=== PATIENT | female | born 1935 | race Caucasian/White ===

== ENCOUNTER 2021-10-13 14:41 | Outpatient (REF) | payer MEDICARE, OTHER, SELFPAY ==
--- NOTE | ~2021-10-13 | CT_ITS ---
EXAMINATION: CT HEAD WITHOUT CONTRAST CLINICAL INFORMATION: AMS and confusion. COMPARISON: None TECHNIQUE: Contiguous axial imaging was performed from the skull base to vertex without intravenous administration of contrast. This CT examination was performed using dose optimization techniques as appropriate, variously including the following: *Automated exposure control *Adjustment of mA and/or kV according to patient size (this includes techniques or standardized protocols for targeted exams where dose is matched to indication/reason for exam; i.e. extremities or head) *Use of iterative reconstruction technique DLP: 772 mGy-cm. FINDINGS: There is no evidence of acute intracranial hemorrhage or territorial infarction. No abnormal mass effect or midline shift is seen. Nova to white matter differentiation is well preserved. No extra-axial fluid collections are identified. Lateral ventricles are enlarged and so are the cortical sulci. There is no abnormal attenuation within the brain parenchyma. There is a left temporal craniotomy with left MCA, 2 aneurysm clips. The mastoid air cells and visualized portions of the paranasal sinuses are well aerated. CT/CT head/brain wo con IMPRESSION: No acute intracranial process seen. Age-related cerebral volume loss. Left temporal craniotomy with 2 MCA aneurysm clips left parasellar region.
== END 2021-10-13 14:42 | disposition home or self-care (01) ==
LOC: HO.CT 14:41
PROVIDERS: PCP Internal Medicine; Visit Provider Internal Medicine
DX: R41.82 Altered mental status, unspecified (principal)
CPT/HCPCS: 70450

== ENCOUNTER 2024-07-11 21:17 | Emergency (ER) | payer MEDICARE, OTHER, SELFPAY ==
--- NOTE | 2024-07-11 | ECG_ITS ---
Test Reason : fall Blood Pressure : / mmHG Vent. Rate : 084 BPM Atrial Rate : 084 BPM P-R Int : 146 ms QRS Dur : 084 ms QT Int : 402 ms P-R-T Axes : -17 018 -04 degrees QTc Int : 475 ms Normal sinus rhythm with sinus arrhythmia Left ventricular hypertrophy with repolarization abnormality ( R in aVL , Romhilt-Machuca ) Abnormal ECG No previous ECGs available Referred By: Generic ED Physician Electronically Signed By:Reed Washington
--- NOTE | ~2024-07-11 | XR_ITS ---
EXAMINATION: XR CHEST CLINICAL INFORMATION: Cough and fall COMPARISON: None available. TECHNIQUE: Frontal view of the chest was obtained. FINDINGS: Heart size normal is no evidence of CHF. Some mild increased reticular nodular markings are noted at the lung apices, right greater than left. No focal consolidations or pleural effusions. The bony thorax appears unremarkable without evidence of a fracture. XR/XR chest 1V IMPRESSION: Mild increased reticular nodular markings at the lung apices, right greater than left. Electronically signed by: J Luis Solitario MD 07/11/2024 10:44 PM [facility]
--- NOTE | ~2024-07-11 | CT_ITS ---
EXAMINATION: CT CERVICAL SPINE WITHOUT CONTRAST; UNENHANCED CT OF THE HEAD. CLINICAL INFORMATION: Unwitnessed fall. Headache. COMPARISON: CT head 10/13/2021 TECHNIQUE: Routine unenhanced CT of the head with multiple coronal and sagittal reformatted images; routine unenhanced CT of the cervical spine with multiple coronal and sagittal reformatted images. This CT examination was performed using dose optimization techniques as appropriate, variously including the following: *Automated exposure control *Adjustment of mA and/or kV according to patient size (this includes techniques or standardized protocols for targeted exams where dose is matched to indication/reason for exam; i.e. extremities or head) *Use of iterative reconstruction technique DLP: 1023 mGy-cm FINDINGS: CT head: 2 aneurysm clips are again noted in the approximate locations of the lateral aspect of the sella turcica similar location to findings present to 2021. Scattering artifact emanates from these regions and partially excludes visualization of adjacent structures. Adjacent craniotomy is visualized. Encephalomalacia of the left anterior temporal lobe and left inferior frontal lobe is again noted. Elsewhere, mild diffuse metastases or prominence of ventricles and sulci is noted. No intracranial hemorrhage, tumors or acute infarcts identified. Bilateral ocular lens replacements. No extra cranial soft tissue inflammatory changes. No significant opacification of the visualized paranasal sinuses, mastoid air cells and middle ear cavities. CT cervical spine: No fractures or acute-appearing subluxations identified. Diffuse osteopenia. The visualized lung apices are grossly clear though are suboptimally visualized secondary to motion artifact. CT/CT head/brain wo IV con IMPRESSION: Unenhanced CT of the head: *No acute intracranial abnormalities. *Two (2) intracranial aneurysm clips in situ. 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 Status post left craniotomy. CT cervical spine: *No acute abnormalities. Electronically signed by: Rajiv Iverson MD 07/12/2024 01:23 AM [facility]
--- NOTE | ~2024-07-11 | CT_ITS ---
EXAMINATION: CT CERVICAL SPINE WITHOUT CONTRAST; UNENHANCED CT OF THE HEAD. CLINICAL INFORMATION: Unwitnessed fall. Headache. COMPARISON: CT head 10/13/2021 TECHNIQUE: Routine unenhanced CT of the head with multiple coronal and sagittal reformatted images; routine unenhanced CT of the cervical spine with multiple coronal and sagittal reformatted images. This CT examination was performed using dose optimization techniques as appropriate, variously including the following: *Automated exposure control *Adjustment of mA and/or kV according to patient size (this includes techniques or standardized protocols for targeted exams where dose is matched to indication/reason for exam; i.e. extremities or head) *Use of iterative reconstruction technique DLP: 1023 mGy-cm FINDINGS: CT head: 2 aneurysm clips are again noted in the approximate locations of the lateral aspect of the sella turcica similar location to findings present to 2021. Scattering artifact emanates from these regions and partially excludes visualization of adjacent structures. Adjacent craniotomy is visualized. Encephalomalacia of the left anterior temporal lobe and left inferior frontal lobe is again noted. Elsewhere, mild diffuse metastases or prominence of ventricles and sulci is noted. No intracranial hemorrhage, tumors or acute infarcts identified. Bilateral ocular lens replacements. No extra cranial soft tissue inflammatory changes. No significant opacification of the visualized paranasal sinuses, mastoid air cells and middle ear cavities. CT cervical spine: No fractures or acute-appearing subluxations identified. Diffuse osteopenia. The visualized lung apices are grossly clear though are suboptimally visualized secondary to motion artifact. CT/CT cervical spine wo IV con IMPRESSION: Unenhanced CT of the head: *No acute intracranial abnormalities. *Two (2) intracranial aneurysm clips in situ. 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 Status post left craniotomy. CT cervical spine: *No acute abnormalities. Electronically signed by: Rajiv Iverson MD 07/12/2024 01:23 AM [facility]
[2024-07-11 21:22] VITALS: BP 170/83; BP 178/82; PULSE 81; PULSE 93; RESP 17; TEMP 36.9; O2SAT 95; O2SAT 96; BMI 28.3
[2024-07-11 21:34] LABS: MANUAL DIFF FLAG NO
[2024-07-11 21:40] LABS: Basophils Percent Auto 0.3 % (0-2); Eosinophils Percent Auto 0.1 % (0-4); Hematocrit 42.3 % (37.0-47.0); Hemoglobin 14.6 g/dl (12.0-16.0); Imm Gran Abs Auto 0.09 X10*3/uL (0.00-0.03); Imm Gran Pct Auto 0.7 % (0.0-0.4); Lymphocytes Absolute Auto 0.8 X10*3/uL (1.2-4.9); Lymphocytes Percent Auto 5.8 % (20-40); Mean Corpuscular HGB Conc 34.5 g/dl (31.0-35.0); Mean Corpuscular Volume 101.4 fL (80.0-98.0); Mean Platelet Volume 10.5 fL (9.4-12.3); Monocytes Absolute Auto 1.3 X10*3/uL (0.1-1.2); Neutrophils Absolute Auto 11.1 x10*3/uL (2.0-8.3); Neutrophils Percent Auto 83.1 % (45-73); Platelet Count 336 X10*3/uL (160-400); Red Blood Count 4.17 X10*6/uL (4.20-5.50); Red Cell Distribution Width 12.7 % (11.0-16.0); White Blood Count 13.3 X10*3/uL (4.8-10.8)
--- NOTE | 2024-07-11 21:42 | PC.NURSE ---
pt biba from home, pt found by son on floor next to bed with stool present. pt a&ox1, dementia at baseline. respirations even and unlabored, pt noted with high BP. pt unknown downtime/loc/headstrike. last contact was yesterday at 12pm by daughter. ems placed spinal immobilization and 20g in right ac. 20g placed in l ac by this rn, labs obtained. pt noted to have wet cough. pt reports neck pain, unable to give VPS. normal sinus 70-72 on tele.
[2024-07-11 21:56] LABS: Troponin-I High Sensitivity 12.4 ng/L (<3.5-17.0)
[2024-07-11 21:57] LABS: Alanine Aminotransferase 66 U/L (0-31); Albumin Level 3.4 g/dL (3.5-5.0); Alkaline Phosphatase 240 U/L (39-117); Anion Gap 21 (12-20); Aspartate Amino Transferase 43 U/L (5-31); Bilirubin Total 1.7 mg/dL (0.0-1.0); Blood Urea Nitrogen 35 mg/dL (9-16); Calcium 9.5 mg/dL (8.4-10.2); Carbon Dioxide 23 mmol/L (22-29); Chloride 100 mmol/L (96-108); Creatinine Clr Calc Pharmacy 36.3; Estimated Glomerular Filt Rate 47; Glucose Random 144 mg/dL (60-115); Potassium 3.8 mmol/L (3.3-5.1); Sodium 140 mmol/L (135-145); Total Protein 7.9 g/dL (6.5-8.0)
--- NOTE | 2024-07-11 21:57 | ED.FALL ---
HPI - Fall General Chief Complaint: Fall Stated Complaint: fall,unk how long on floor. neck pain,no thinners Time Seen by Provider: 07/11/24 21:56 Source: patient Mode of arrival: EMS Limitations: no limitations History of Present Illness ED Provider: Dr. 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 Unknown when the patient fell but she was last seen yesterday by the family. According to nursing staff the patient was covered in feces and urine. The patient has no memory of the fall and lacks insight as to why she was here. The patient was complaining of neck pain but has no other complaints. The son states that when he found her she was lying on the floor with her head up against the bed with her neck twisted in a funny position Related Data Allergies Allergy/AdvReac Type Severity Reaction Status Date / Time No Known Allergies Allergy Verified 07/11/24 21:34 Review of Systems Review of Systems: Yes all other systems are reviewed and are negative [facility] Past Medical History [facility] Narrative: Social history: Patient states she lives at home alone but her son and son's family lives close by and checks in on her often. Social History Social History Smoked in Last 30 Days: No Use of substances other than those prescribed or required for medical reasons: No Advance Directives: No Advance Directives Information Provided: Yes Do you have a plan to hurt others: No Plan Physical Exam Vital Signs: Vital Signs: Last Vital Signs Temp 98.5 F 07/12/24 02:24 Pulse 74 07/12/24 02:24 Resp 18 07/12/24 02:24 BP 183/88 H 07/12/24 02:24 Pulse Ox 97 07/12/24 02:24 O2 Del Method Room Air 07/12/24 02:24 BMI result Body Mass Index 28.3 Vital signs revealed an elevated blood pressure of 170/83 Exam: General: Awake, alert in no distress, lacks insight as to why she was here and can not give me any details of her fall Head: Normocephalic, atraumatic EENT: PERRL, Lids normal, sclera normal, conjunctiva normal, nose normal , ears normal, throat without erythema or exudates Neck: Patient was tenderness palpation of her cervical spine, she has pain with minimal movement of her neck Lung: breath sounds symmetric, no wheezing, rales or rhonchi Chest: symmetric movement, nontender Heart: regular rate and rhythm, normal S1, S2 no murmurs or rubs Abdomen: soft, non-tender, nondistended, normal bowel sounds Back: no vertebral tenderness, no CVAT Extremities: no deformities, moves all extremities symmetrically Neuro: Awake, alert, oriented, normal speech, cranial nerves intact, moves all extremities symmetrically Psych: Pleasant, cooperative Medications Administered Discontinued Medications Generic Name Dose Route Start Last Admin Trade Name Freq PRN Reason Stop Dose Admin Sodium Chloride 1,000 mls @ 999 mls/hr 07/11/24 22:03 07/12/24 00:33 Ns IV 07/11/24 23:03 Infused .Q1H1M STA Infusion Medical Decision Making Medical Decision Making MDM Narrative: 88-year-old female history of dementia, hypertension, 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 Unknown when the patient fell but she was last seen yesterday by the family. According to nursing staff the patient was covered in feces and urine. The patient has no memory of the fall and lacks insight as to why she was here. The patient was complaining of neck pain but has no other complaints. Vital signs were unremarkable. Exam did reveal tenderness palpation of her neck with no other significant findings. Differential diagnosis: ?Includes but is not limited to skull fracture, intracranial bleed, neck fracture, neck sprain, rhabdomyolysis, electrolyte abnormalities, anemia, volume depletion, dehydration Course: 22:56 My interpretation patient's laboratory evaluation is as follows: WBC elevated 13,300. H&H was normal 14.6 and 42.3 with an elevated MCV of 101.4. BUN elevated 35 with a normal creatinine of 1.10-most likely secondary to dehydration volume depletion. Glucose elevated 144. Bilirubin elevated 1.7. AST, ALT and alk-phos elevated 43, 66 and 240. CK was normal at 70. Straight cath urinalysis was positive for protein, blood, nitrates and leukocyte esterase. Microscopic revealed 0-2 RBCs, 11-20 WBCs, 0-2 squamous cells, 4+ bacteria-consistent with a urinary tract infection. Patient was started on Ceftin 250 mg q.12 hours for 5 days for urinary tract infection. 02:28 Start physician observation The patient's CT scan of her head and cervical spine did not reveal any acute abnormalities. The nursing staff attempted to get the patient out of bed and she was a 2-3 person assist and could not stand and walk. I suspect that this is secondary to contusions/muscle injury from lying on the floor for prolonged period of time and being in an awkward position. According to the son the patient was normally able to walk without any difficulty, therefore the patient will be placed in physician observation and I will get a physical therapy and case management consult to determine if the patient can go to a alf facility for rehab. The patient was given Tylenol 975 mg orally for her pain Lab Data MDM Lab Attestation statement: I reviewed the patient's lab results. 07/11/24 21:31 07/11/24 21:31 Labs: Lab Results 07/11/24 07/11/24 Range/Units 21:31 22:14 WBC 13.3 H (4.8-10.8) X10*3/uL RBC 4.17 L (4.20-5.50) X10*6/uL Hgb 14.6 (12.0-16.0) g/dl Hct 42.3 (37.0-47.0) % MCV 101.4 H (80.0-98.0) fL MCH 35.0 H (27.0-33.0) pg MCHC 34.5 (31.0-35.0) g/dl RDW 12.7 (11.0-16.0) % Plt Count 336 (160-400) X10*3/uL MPV 10.5 (9.4-12.3) fL Immature Gran % (Auto) 0.7 H (0.0-0.4) % Neut % (Auto) 83.1 H (45-73) % Lymph % (Auto) 5.8 L (20-40) % Sharp % (Auto) 10.0 (2-11) % Eos % (Auto) 0.1 (0-4) % Baso % (Auto) 0.3 (0-2) % Lymph # (Auto) 0.8 L (1.2-4.9) X10*3/uL Sharp # (Auto) 1.3 H (0.1-1.2) X10*3/uL Eos # (Auto) 0.0 (0.0-0.4) X10*3/uL Baso # (Auto) 0.0 (0.0-0.2) X10*3/uL Abs Immat Gran (auto) 0.09 H (0.00-0.03) X10*3/uL Absolute Neuts (auto) 11.1 H (2.0-8.3) x10*3/uL Absolute Nucleated RBC 0.000 (0.0-0.012) X10*3/uL Nucleated RBC % (auto) 0.0 (0.0-0.2) /100WBC Sodium 140 (135-145) mmol/L Potassium 3.8 (3.3-5.1) mmol/L Chloride 100 (96-108) mmol/L Carbon Dioxide 23 (22-29) mmol/L Anion Gap 21 H (12-20) BUN 35 H (9-16) mg/dL Creatinine 1.10 (0.5-1.4) mg/dL Estim Creat Clear Calc 36.3 Estimated GFR 47 Random Glucose 144 H (60-115) mg/dL Calcium 9.5 (8.4-10.2) mg/dL Total Bilirubin 1.7 H (0.0-1.0) mg/dL AST 43 H (5-31) U/L ALT 66 H (0-31) U/L Alkaline Phosphatase 240 H (39-117) U/L Total Creatine Kinase 70 (26-140) U/L Troponin I High Sens 12.4 (<3.5-17.0) ng/L Total Protein 7.9 (6.5-8.0) g/dL Albumin 3.4 L (3.5-5.0) g/dL Urine Color Dark Yellow Urine Appearance Clear Urine pH 5.0 (5.0-9.0) Ur Specific [place] 1.015 (1.005-1.025) Urine Protein 30 (1+) H (Neg-Trace) mg/dL Urine Glucose (UA) Negative (Negative) mg/dL Urine Ketones 15 (Negative) mg/dL Urine Blood Trace H (Negative) Urine Nitrite Positive H (Negative) Ur Leukocyte Esterase Small (1+) H (Negative) Urine RBC 0-2 (0-2) /HPF Urine WBC 11-20 H (0-5) /HPF Ur Squamous Epith Cells 0-2 (0-2) /HPF Urine Bacteria 4+ (None Seen) Hyaline Casts 3-5 (0-2) /LPF Radiology Impression Discussion of test interpretation with radiology: I have reviewed the radiologist's reading. Radiologist Impression: CT head/brain wo IV con IMPRESSION: Unenhanced CT of the head: *No acute intracranial abnormalities. *Two (2) intracranial aneurysm clips in situ. 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 Status post left craniotomy. CT cervical spine: *No acute abnormalities. Electronically signed by: Rajiv Iverson MD 07/12/2024 01:23 AM [facility] [place] Dictated By: Rajiv Iverson MD Discharge Plan Discharge Clinical Impression: Multiple contusions, Unable to ambulate Fall Qualifiers: Encounter type: initial encounter Qualified Code(s): W19.XXXA - Unspecified fall, initial encounter Acute neck sprain Qualifiers: Encounter type: initial encounter Qualified Code(s): S13.9XXA - Sprain of joints and ligaments of unspecified parts of neck, initial encounter Urinary tract infection Qualifiers: Urinary tract infection type: acute cystitis Hematuria presence: without hematuria Qualified Code(s): N30.00 - Acute cystitis without hematuria Patient Disposition: Still a Patient Additional Instructions: Take Ceftin 250 mg pills, 1 pill every 12 hours for 5 days for urinary tract infection Print Language: Jamaican
[2024-07-11] MEDS: 0.9 % Sodium Chloride 1,000 ML 999 ML IV (22:14)
--- NOTE | 2024-07-11 22:18 | PC.NURSE ---
pt straight cath per provider order. pt noted to have 700Ml tea colored, foul smelling urine. pt tolerated well.
[2024-07-11 22:23] LABS: Appearance Urine Clear; Color Urine Dark Yellow; Glucose Urine UA Negative (Negative); Leukocyte Esterase Urine Small (1+) (Negative); Nitrite Urine Positive (Negative); Specific Gravity - Urine 1.015 (1.005-1.025); UMIC TRIGGER UACC YES; Urine Blood Trace (Negative); Urine Ketones 15 mg/dL (Negative); Urine Protein 30 (1+) mg/dL (Neg-Trace)
[2024-07-11 22:28] LABS: Bacteria Urine 4+ (None Seen); RBC Urine 0-2 /HPF (0-2); Squamous Epithelial Cell Urine 0-2 /HPF (0-2); UACC Culture Trigger YES
--- NOTE | 2024-07-12 02:00 | PC.NURSE ---
this RN attempted to ambulate pt, pt unable to sit up without assistance. on standing, pt 3 person assist. pt helped back into bed, provider aware.
[2024-07-12 02:24] VITALS: BP 183/88; PULSE 74; RESP 18; TEMP 36.9; O2SAT 97
[2024-07-12] MEDS: cefuroxime axetiL 250 MG TABLET PO ×3 (03:24→20:57)
[2024-07-12] MEDS: Acetaminophen 325 MG TABLET 975 MG PO (03:24)
--- NOTE | 2024-07-12 03:34 | PC.NURSE ---
pt medicated per oct, tolerated well one pill at a time with water and re direction.
--- NOTE | 2024-07-12 06:44 | PC.NURSE ---
Pt was placed on purewick, sleeping while in overflow unit.
[2024-07-12 07:38] VITALS: BP 183/88; PULSE 74; O2SAT 97
[2024-07-12 07:57] VITALS: BP 195/94; PULSE 64; RESP 16; TEMP 36.4; O2SAT 97
[2024-07-12 08:26] LABS: COVID-19 Test Negative (Negative); IDNOW Serial# 152EDE1D
--- NOTE | 2024-07-12 10:01 | MHC.CM.ED ---
Addendum entered by Hannah He 07/12/24 10:10: Spoke with Patti at [facility] in [place]. They have apartments available. Clinical info will be faxed to her at [phone]. Keya has been asked to call Patti at [phone]. Original Note: Received case management consult overnight. Patient came to the ER after being found on the ground by her son. Patient found to have UTI. Physical therapy eval completed. 21/03 care vs LTC recommended. Patient is confused at this time. Spoke with patient's son, Jayson, via telephone at [phone]. Patient lives alone, ambulates independently and had no services prior to coming to the ER. Physical therapy eval findings discussed. Jayson believes patient has a fpc care insurance policy. Jayson states his sister, Keya, will be bedside with patient shortly. Met with Keya and patient. Keya has a copy of patient's HCP and will provide CM with a copy. Keya verifies patient has a fpc care insurance policy and that family has looked into [facility] in [place]. T/W will reach out to [facility]. Continue to monitor for d/c needs.
--- NOTE | 2024-07-12 16:50 | PC.NURSE ---
Alert and oriented, purewick in place draining urine, ate well for dinner
--- NOTE | 2024-07-12 18:57 | PC.NURSE ---
Patient resting comfortably on a hospital bed, purewick in place and patent. Patient offers no complaints at tis time, patient's son at bedside, call donovan in patient's reach.
[2024-07-12 19:29] VITALS: BP 165/77
--- NOTE | 2024-07-12 19:42 | PC.NURSE ---
BP 165/77, P 80. Patient denies headache/ chest pain/SOB. Kailee Navas ED provider notified. Medication reconciliation completed. Yosef to order patient's home medications including BP meds.
--- NOTE | 2024-07-12 20:19 | PHA.MEDREC ---
Pharmacy Consult ? Medication Reconciliation Pharmacy has reviewed the medication reconciliation done by nursing.
[2024-07-12] MEDS: Donepezil HCl 10 MG TABLET PO (20:56)
[2024-07-12] MEDS: Phenytoin Sodium Extended 100 MG CAPSULE 200 MG PO (20:57)
[2024-07-12] MEDS: Memantine HCl 10 MG TABLET PO (20:57)
--- NOTE | 2024-07-12 21:04 | PC.NURSE ---
Patient medicated per MAR.
--- NOTE | 2024-07-13 03:34 | PC.NURSE ---
Patient is sleeping, not s/s of distress, RR even and unlabored.
[2024-07-13] MEDS: Levothyroxine Sodium 50 MCG TABLET PO (05:04)
[2024-07-13 05:37] VITALS: BP 162/82; PULSE 81; RESP 16; TEMP 37.1; O2SAT 95
[2024-07-13 07:44] VITALS: BP 168/102; PULSE 86; RESP 20; TEMP 36.8; O2SAT 96
--- NOTE | 2024-07-13 09:22 | MHC.CM.ED ---
Patient remains in ER overflow. Attempted to reach patient's daughter, Keya, in regards to discharge planning via telephone at [phone]. Left message requesting return telephone call. Continue to monitor for d/c needs.
[2024-07-13 09:47] VITALS: BP 171/98
[2024-07-13] MEDS: amLODIPine Besylate 10 MG TABLET PO (09:47)
--- NOTE | 2024-07-13 09:47 | MHC.CM.ED ---
Received return telephone call from daughter, Keya. Keya is completing application for [facility]. A nurse from [facility] will come to ER to assess patient. Family is planning on furnishing apartment this weekend. Anticipate patient can potentially d/c to [facility] in [place] on Tuesday. Continue to monitor for d/c needs.
[2024-07-13] MEDS: Losartan Potassium 50 MG TABLET 100 MG PO (09:48)
[2024-07-13] MEDS: Memantine HCl 10 MG TABLET PO ×2 (09:48→21:25)
[2024-07-13] MEDS: cefuroxime axetiL 250 MG TABLET PO ×2 (09:48→21:25)
[2024-07-13] MEDS: Pravastatin Sodium 40 MG TABLET PO (13:23)
[2024-07-13 14:00] VITALS: BP 140/63; PULSE 105; RESP 20; TEMP 37.3; O2SAT 95
[2024-07-13 16:07] VITALS: BP 139/64; PULSE 100; RESP 16; TEMP 37; O2SAT 97
[2024-07-13 19:36] VITALS: BP 115/56; PULSE 82; RESP 16; TEMP 36.3; O2SAT 95
[2024-07-13] MEDS: Donepezil HCl 10 MG TABLET PO (21:25)
[2024-07-13] MEDS: Phenytoin Sodium Extended 100 MG CAPSULE 200 MG PO (22:19)
--- NOTE | 2024-07-14 01:41 | PC.NURSE ---
Patient sleeping, right tilt position. Respirations even/unlabored. No acute distress. Visible chest rise. Allowed to sleep. Care ongoing.
[2024-07-14 05:52] VITALS: BP 149/67; PULSE 85; RESP 16; TEMP 37.1; O2SAT 97
[2024-07-14] MEDS: Levothyroxine Sodium 50 MCG TABLET PO (06:25)
[2024-07-14] MEDS: Acetaminophen 325 MG TABLET 650 MG PO ×2 (06:25→20:59)
--- NOTE | 2024-07-14 06:28 | MHC.EDTECH ---
Patient slept all night ,0600 rounding and vitals done ,Patient was clean up ,change and reposition ,Patient has a foam dressing on her coccyx for comfort ,no open area ,warm blanket given ,all safety measure in Place .
[2024-07-14 08:13] VITALS: BP 149/67
[2024-07-14] MEDS: Losartan Potassium 50 MG TABLET 100 MG PO (08:13)
[2024-07-14 08:14] VITALS: BP 149/67
[2024-07-14] MEDS: cefuroxime axetiL 250 MG TABLET PO ×2 (08:14→20:59)
[2024-07-14] MEDS: amLODIPine Besylate 10 MG TABLET PO (08:14)
[2024-07-14] MEDS: Memantine HCl 10 MG TABLET PO ×2 (08:14→20:59)
[2024-07-14] MEDS: Pravastatin Sodium 40 MG TABLET PO (09:30)
[2024-07-14 14:00] VITALS: BP 135/63; PULSE 90; RESP 16; TEMP 36.8; O2SAT 93
--- NOTE | 2024-07-14 19:11 | PC.NURSE ---
received report from Indu CHRISTOPHER, assume care of pt at this time
[2024-07-14] MEDS: Phenytoin Sodium Extended 100 MG CAPSULE 200 MG PO (20:59)
[2024-07-14] MEDS: Donepezil HCl 10 MG TABLET PO (20:59)
[2024-07-14 21:03] VITALS: BP 169/76; PULSE 108; RESP 16; TEMP 36.9; O2SAT 94
[2024-07-15 06:00] VITALS: BP 136/63; PULSE 80; RESP 16; TEMP 36.9; O2SAT 92
[2024-07-15] MEDS: Levothyroxine Sodium 50 MCG TABLET PO (06:24)
--- NOTE | 2024-07-15 06:56 | PC.NURSE ---
report given Tsering CHRISTOPHER
[2024-07-15 09:00] VITALS: BP 136/63
[2024-07-15] MEDS: Memantine HCl 10 MG TABLET PO ×2 (09:00→21:30)
[2024-07-15] MEDS: Losartan Potassium 50 MG TABLET 100 MG PO (09:00)
[2024-07-15 09:01] VITALS: BP 136/63
[2024-07-15] MEDS: Acetaminophen 325 MG TABLET 650 MG PO ×2 (09:01→19:15)
[2024-07-15] MEDS: amLODIPine Besylate 10 MG TABLET PO (09:01)
[2024-07-15] MEDS: cefuroxime axetiL 250 MG TABLET PO ×2 (09:01→21:30)
--- NOTE | 2024-07-15 09:25 | PC.NURSE ---
Resumed care of patient at 0700, she is currently resting, she is alert to herself. Pt is a 1:1 feed, pt as not very hungry at this time but did eat 25%, she was very thirsty and had 3 juices and water. PT is very anxious that her family has no idea where she is, emotional support provided to patient, bed alarm remains on and call donovan placed.
[2024-07-15] MEDS: Pravastatin Sodium 40 MG TABLET PO (11:47)
[2024-07-15 14:17] VITALS: BP 146/66; PULSE 96; RESP 16; TEMP 36.8; O2SAT 95
--- NOTE | 2024-07-15 15:42 | MHC.CM.ED ---
Patient remains in ER overflow. Met with patient, daughter Keya and son Jayson in regards to discharge planning. Furniture will be delivered Tuesday. Nurse from [facility] will be on-site [id number]. Keya concerned patient is not ambulating. Will ask physical therapy to re-see patient on Tuesday. Continue to monitor for d/c needs.
[2024-07-15] MEDS: Phenytoin Sodium Extended 100 MG CAPSULE 200 MG PO (21:30)
[2024-07-15] MEDS: Donepezil HCl 10 MG TABLET PO (21:30)
[2024-07-15 22:00] VITALS: BP 138/79; PULSE 70; RESP 18; TEMP 36.8; O2SAT 95
[2024-07-16] MEDS: Levothyroxine Sodium 50 MCG TABLET PO (05:44)
[2024-07-16 06:00] VITALS: BP 180/84; PULSE 70; RESP 18; TEMP 37; O2SAT 98
--- NOTE | 2024-07-16 06:35 | PC.NURSE ---
pt awake most of the night, resting comfortably but just looking out at the dept. during med passes pt unable to bring pill to mouth or follow simple commands at times, needs lots of cueing and/or physically assisting to bring her hand to her mouth with the pill for her. very pleasant, calm and cooperative but forgetful
--- NOTE | 2024-07-16 08:45 | MHC.EDTECH ---
pt ate 50% of breakfast
[2024-07-16 09:16] VITALS: BP 180/84
[2024-07-16] MEDS: cefuroxime axetiL 250 MG TABLET PO ×2 (09:16→20:52)
[2024-07-16] MEDS: Losartan Potassium 50 MG TABLET 100 MG PO (09:16)
[2024-07-16 09:17] VITALS: BP 180/84
[2024-07-16] MEDS: Memantine HCl 10 MG TABLET PO ×2 (09:17→20:52)
[2024-07-16] MEDS: amLODIPine Besylate 10 MG TABLET PO (09:17)
[2024-07-16] MEDS: Pravastatin Sodium 40 MG TABLET PO (09:57)
--- NOTE | 2024-07-16 10:15 | MHC.EDTECH ---
pt was washed up and had a complete bed change and was assisted to the recliner
--- NOTE | 2024-07-16 10:32 | PC.NURSE ---
pt awake/alert to person only, rr equal/non labored, lungs diminished throughout, pt denied pain/discomfort, ate breakfast, fall precautions in place-bed alarm on- pt was attempting to get oob wanting to walk to her room- pt was re-oriented, with this nurse at bedside patient was able to stand get oob and pivot to a reclining chair. pt currently watching tv. pure wick intact, call donovan within reach, will continue to monitor.
--- NOTE | 2024-07-16 11:32 | MHC.CM.ED ---
Patient remains in ER overflow. Nurse from [facility] should be on-site today to assess patient. Attempted to speak to Patti from [facility] via telephone at [phone] to confirm what time nurse would be coming. Left voicemail requesting return telephone call. Continue to monitor for d/c needs.
--- NOTE | 2024-07-16 12:36 | MHC.EDTECH ---
pt walked to the bathroom with a walker 1 assist and voided
--- NOTE | 2024-07-16 12:37 | PC.NURSE ---
patient ambulated with walker/stby assist from her bed to the bathroom and back to the bed, pt did well during this ambulation.
--- NOTE | 2024-07-16 12:46 | MHC.EDTECH ---
pt ate 50%lunch
[2024-07-16] MEDS: Acetaminophen 325 MG TABLET 650 MG PO (13:13)
--- NOTE | 2024-07-16 13:16 | PC.NURSE ---
pt medicated for 12/06 headache
[2024-07-16 13:51] VITALS: BP 135/67; PULSE 106; RESP 20; TEMP 36.2; O2SAT 94
--- NOTE | 2024-07-16 14:50 | MHC.CM.ED ---
Jim from [facility] on-site to assess patient. Jim will return to [facility] and meet with their team to determine if patient is safe for their independent unit or will need memory care. Continue to monitor for d/c needs.
--- NOTE | 2024-07-16 15:04 | MHC.EDTECH ---
pt wanted to go back to bed and was 1assist to the bed
--- NOTE | 2024-07-16 16:51 | MHC.EDTECH ---
pt had voided 250ml in the purewick and 1x inc in the brief
--- NOTE | 2024-07-16 18:17 | MHC.EDTECH ---
pt was clean up not inc has a brief and purewick on for bed
--- NOTE | 2024-07-16 18:24 | MHC.EDTECH ---
pt ate 50% of her dinner
[2024-07-16] MEDS: Donepezil HCl 10 MG TABLET PO (20:52)
[2024-07-16 21:10] VITALS: BP 182/79; PULSE 76; RESP 18; TEMP 36.9; O2SAT 96
--- NOTE | 2024-07-16 21:12 | PC.NURSE ---
pharmacy called for dilantin 200mg po that is not stocked in the pyxis.
[2024-07-16] MEDS: Phenytoin Sodium Extended 100 MG CAPSULE 200 MG PO (21:35)
[2024-07-17] VITALS (9 sets, daily range): BP systolic 131–217; BP diastolic 65–100; PULSE 80–103; RESP 16–18; TEMP 36.3–36.6; O2SAT 93–96
[2024-07-17] MEDS: Levothyroxine Sodium 50 MCG TABLET PO (05:53)
[2024-07-17] MEDS: amLODIPine Besylate 10 MG TABLET PO (05:53)
--- NOTE | 2024-07-17 06:23 | PC.NURSE ---
Dr Bal made aware of pt bp elevated 217/98 hr 80 ok to give morning norvas 10mg now.
[2024-07-17] MEDS: Losartan Potassium 50 MG TABLET 100 MG PO (09:46)
[2024-07-17] MEDS: Memantine HCl 10 MG TABLET PO ×2 (09:46→21:15)
--- NOTE | 2024-07-17 09:49 | MHC.CM.ED ---
Patient remains in ER overflow. Bed will be delivered to [facility] today between 12p-3pm. Patient will leave us tomorrow 07/18, via [facility] at 9am. Patient, daughter Keya, Ayde CHRISTOPHER and Liseth KUMAR aware. Med [facility] with chart. Continue to monitor for d/c needs.
--- NOTE | 2024-07-17 10:21 | PC.NURSE ---
Pt keeps attempted to leave the bed. Camera placed on the patient for safety. 3rd bed rail placed up to help deter patient from swinging legs over the bed
--- NOTE | 2024-07-17 11:21 | PC.NURSE ---
Moved pt to bed 5- pt has settled down- and its nice to see people
--- NOTE | 2024-07-17 12:10 | MHC.EDTECH ---
this tech assisted pt to the commode. pt had a large bowel movement. pt is back in bed, and sleeping. call donovan in place
--- NOTE | 2024-07-17 18:56 | PC.NURSE ---
Assumed care of pt. Pt lying on stretcher, no acute distress at this time. Camera on pt for safety.
[2024-07-17] MEDS: Phenytoin Sodium Extended 100 MG CAPSULE 200 MG PO (21:15)
[2024-07-17] MEDS: Donepezil HCl 10 MG TABLET PO (21:15)
--- NOTE | 2024-07-17 22:24 | PC.NURSE ---
Pt being transitioned back to main ED for management of HTN. Report to ASHWIN Aj.
--- NOTE | 2024-07-17 22:40 | PC.NURSE ---
pt brought over from overflow to main ed bed 13. pt provides no complaints at this time, denies pain. pt vss. Christine KUMAR aware. pt placed on tele, normal sinus 98-100bpm.
[2024-07-18] VITALS (8 sets, daily range): BP systolic 129–178; BP diastolic 65–82; PULSE 80–88; RESP 13–18; TEMP 36.7; O2SAT 93–98
[2024-07-18] MEDS: Levothyroxine Sodium 50 MCG TABLET PO (06:01)
[2024-07-18] MEDS: Memantine HCl 10 MG TABLET PO (07:44)
[2024-07-18] MEDS: Losartan Potassium 50 MG TABLET 100 MG PO (07:44)
[2024-07-18] MEDS: amLODIPine Besylate 10 MG TABLET PO (07:44)
[2024-07-18] MEDS: Pravastatin Sodium 40 MG TABLET PO (08:41)
== END 2024-07-18 09:16 | disposition skilled nursing facility (03) ==
PROVIDERS: Emergency Provider Emergency Medicine Emergency Medical Services; PCP Internal Medicine
DX: S13.9XXA Sprain of joints and ligaments of unspecified parts of neck, initial encounter (principal); T14.8XXA Other injury of unspecified body region, initial encounter; W19.XXXA Unspecified fall, initial encounter; N30.00 Acute cystitis without hematuria; B96.20 Unspecified Escherichia coli [E. coli] as the cause of diseases classified elsewhere; R26.89 Other abnormalities of gait and mobility; F03.90 Unspecified dementia, unspecified severity, without behavioral disturbance, psychotic disturbance, mood disturbance, and anxiety; I10 Essential (primary) hypertension; Y93.9 Activity, unspecified; Y92.039 Unspecified place in apartment as the place of occurrence of the external cause; Y99.9 Unspecified external cause status
CPT/HCPCS: 36415; 51701; 70450; 71045; 72125; 80053; 81001; 82550; 84484; 85025; 87086; 87088; 87186; 87635; 93005; 96360; 97163; 99285

== ENCOUNTER → 2024-07-11 21:39 | Outpatient (BNV) | payer MEDICARE, OTHER, SELFPAY | PROVIDERS: Emergency Provider Emergency Medicine Emergency Medical Services; PCP Internal Medicine; Visit Provider Internal Medicine Cardiovascular Disease | DX: R94.31 Abnormal electrocardiogram [ECG] [EKG] (principal) | CPT/HCPCS: 93010 ==

== ENCOUNTER 2025-02-27 15:41 | Outpatient (AMB) | payer MEDICARE, OTHER, SELFPAY ==
--- NOTE | 2025-02-27 14:42 | A.OFFVIS_ITS ---
Intake Visit Reasons: AD Allergies No Known Allergies Allergy (Verified 07/11/24 21:34) HPI HPI AD: Details: 89 yo woman with history of cerebral aneurysm clipping decades ago and dementia. HPI Comments Details: The patient is an 89-year-old female presenting with a follow-up visit for ongoing management of dementia and depressive disorder. Residing in an assisted living facility, she has medications administered by nursing staff, indicating a structured medical regimen that includes Donepezil and Memantine for cognitive issues along with Sertraline for mood stabilization. While the patient feels generally well, her daughter has observed intermittent mood depression and reduced community engagement in their living environment. Appetite and sleep patterns remain consistent, and the patient's occasional wine consumption and the recent transition to her new residence at [facility] are noted as lifestyle factors. [facility] Medical History (Updated 02/27/25 @ 15:58 by Shay Nunez MD) Dementia Hypothyroidism Hypertension Seizure disorder Multifactorial dementia Alzheimer disease Review of Systems Const Details: - Neurological: Reports stable appetite, good sleep. - Psychiatric: Denies current issues but daughter notes decreased activity and mood fluctuations. Physical Exam Neuro Other: - Appearance/behavior: Alert, normal speech. - Mood & affect: Daughter reports low mood and decreased participation in activities. - Thought content: No focal neurological deficits noted. 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 The rationale for maintaining these medications revolves around sustained management of dementia and maintaining emotional well- being. The potential influence of the patient's transition to [facility] on her mood was reviewed, with future consideration of further social engagement and possible support services should symptoms change. No immediate modifications to her pharmaceutical treatment were deemed necessary. Follow-up visits will continue to evaluate symptom progression and efficacy of current interventions. Medications: New donepezil 10 mg PO DAILY 90 tabs 1RF memantine (Namenda) 10 mg PO BID 180 tabs 1RF 90 days sertraline 25 mg PO DAILY 90 tabs 1RF 90 days Coding Level of Care Code Est Pt Level 4 (53995) Diagnoses Alzheimer dementia G30.9; F02.80
--- OUTSIDE RECORDS SUMMARY | 2025-02-27 15:46 | XMS_ITS | Clinical Summary ---
Author Organization [facility] ity Address [address] [place] [address] Care Team Providers Care Jacquard Lace Weaver Name Role Phone Unavailable Primary Care Provider Unavailabl e Social History Tobacco Use Types Packs/Day Years Used Date Smoking Tobacco: Never Assessed Comments Unknown Sex and Gender Information Value Date Recorded Sex Assigned at Not on file Legal Sex Female 3:02 PM EST Gender Identity Not on file Sexual Orientation Not on file Plan of Treatment Health Maintenance Due Date Last Done Comments DTaP,Tdap,and Td Vaccines (1 - Tdap) 1954 Pneumococcal Vaccine: 50+ Ye ars (1 of 1 - PCV) 11/04/1987 Zoster Vaccines (1 of 2) 11/04/1987 RSV Immunization Adult Patie nts (1 - 1-dose 75+ series) 2012 COVID-19 Vaccine ( - 2023-2 5 season) 2024 Influenza Vaccine (Season Ended) 2025 HIB Vaccines Aged Out No longer eligi ble based on patient's age to complete this topic HPV Vaccines Aged Out No longer eligi ble based on patient's age to complete this topic Hepatitis A Vaccines Aged Out No long er eligible based on patient's age to complete this topic Hepatitis B Vaccines Aged Out No long er eligible based on patient's age to complete this topic IPV Vaccines Aged Out No longer eligi ble based on patient's age to complete this topic MMR Vaccines Aged Out No longer eligi ble based on patient's age to complete this topic Meningococcal ACWY Vaccine Aged Out N o longer eligible based on patient's age to complete this topic Meningococcal B Vaccine Aged Out No l onger eligible based on patient's age to complete this topic RSV Immunization Patients Un merlin 20 months Aged Out No longer eligible b ased on patient's age to complete this topic Varicella Vaccines Aged Out No longer eligible based on patient's age to complete this topic
== END 2025-02-27 16:32 | disposition home or self-care (01) ==
LOC: HO.HSM 15:41
PROVIDERS: PCP Physician Assistant; Visit Provider Psychiatry & Neurology Neurology
DX: G30.9 Alzheimer's disease, unspecified (principal); F02.80 Dementia in other diseases classified elsewhere, unspecified severity, without behavioral disturbance, psychotic disturbance, mood disturbance, and anxiety
CPT/HCPCS: 99214

== ENCOUNTER → 2025-02-27 15:41 | Outpatient (BNVA) | payer MEDICARE, OTHER, SELFPAY | PROVIDERS: PCP Physician Assistant; Visit Provider Psychiatry & Neurology Neurology | DX: G30.9 Alzheimer's disease, unspecified (principal); F02.C4 Dementia in other diseases classified elsewhere, severe, with anxiety; Z79.899 Other long term (current) drug therapy | CPT/HCPCS: 99212 ==